=== PATIENT | female | born 1965 | race Two or more races ===

== ENCOUNTER 2018-10-03 06:59 | Day surgery (SDC) | payer OTHER ==
[~2018-10-03] VITALS: Ht 162.6 cm; Wt 61.2 kg
[2018-10-03 07:33] VITALS: BP 145/95
[2018-10-03 11:12] VITALS: BP 110/78
== END 2018-10-03 10:50 | disposition home or self-care (01) ==
LOC: DS 06:59 → OR 08:30 → GI 08:30 → DS 10:50
DX: K63.5 Polyp of colon (principal); K21.0 Gastro-esophageal reflux disease with esophagitis; K29.70 Gastritis, unspecified, without bleeding; K29.80 Duodenitis without bleeding; Z98.890 Other specified postprocedural states; Z98.51 Tubal ligation status; Z80.0 Family history of malignant neoplasm of digestive organs
CPT/HCPCS: 43235; 45378; 88344; G0500; J1200; J1610; J2250; J2310; J3010; J3490